=== PATIENT | male | born 1980 | race Caucasian/White ===

== ENCOUNTER → 2022-03-27 | Outpatient (CLI) | payer OTHER, SELFPAY | END | disposition home or self-care (01) | LOC: PSN 09:49 | PROVIDERS: Referring Provider Internal Medicine Cardiovascular Disease; Visit Provider Internal Medicine Cardiovascular Disease | DX: I49.3 Ventricular premature depolarization (principal) | CPT/HCPCS: 93225; 93226 ==

== ENCOUNTER → 2022-10-08 | Outpatient (CLI) | payer OTHER, SELFPAY ==
[2022-10-08 12:55] LABS: ALB/GLOB Ratio 1.3 RATIO (0.9-2.4); AST(SGOT) 27 U/L (15-37); Alanine Aminotransfer ALT/SGPT 36 U/L (16-61); Albumin, Serum 4.1 g/dL (3.2-5.0); Alkaline Phosphatase 71 U/L (45-117); Anion Gap 4 (5-15); BUN 15 mg/dL (7-18); BUN/Creat Ratio 16.8 RATIO (10-20); Calcium,Total 8.8 mg/dL (8.5-10.1); Chloride 106 mmol/L (98-107); Cholesterol 157 mg/dL (200); EST Glomerular Filtration Rate 98 mL/min (>60); Est Glom Filt Rate - Afr Amer 119 mL/min (>60); Globulin 3.1 g/dL (2.2-4.2); Glucose 105 mg/dL (74-106); High Density Lipoprotein 63 mg/dL; Protein, Total 7.2 g/dL (6.4-8.2); Sodium Level 138 mmol/L (136-145); Triglycerides 78 mg/dL; Very Low Density Lipoprotein 16 mg/dL (5-40)
== END | disposition home or self-care (01) ==
LOC: LAB 10:33
PROVIDERS: Referring Provider Physician Assistant Medical; Visit Provider Physician Assistant Medical
DX: E78.5 Hyperlipidemia, unspecified (principal)
CPT/HCPCS: 36415; 80053; 80061

== ENCOUNTER → 2023-10-09 | Outpatient (CLI) | payer OTHER, SELFPAY ==
[2023-10-09 11:59] LABS: AST(SGOT) 22 U/L (15-37); Alanine Aminotransfer ALT/SGPT 36 U/L (16-61); Albumin, Serum 3.9 g/dL (3.2-5.0); Alkaline Phosphatase 60 U/L (45-117); Bilirubin, Direct 0.18 mg/dL (0.00-0.30); Cholesterol 160 mg/dL (200); Globulin 3.3 g/dL (2.2-4.2); High Density Lipoprotein 61 mg/dL; Protein, Total 7.2 g/dL (6.4-8.2); Triglycerides 68 mg/dL; Very Low Density Lipoprotein 14 mg/dL (5-40)
== END | disposition home or self-care (01) ==
LOC: LAB 10:28
PROVIDERS: Referring Provider Physician Assistant Medical; Visit Provider Physician Assistant Medical
DX: I49.3 Ventricular premature depolarization (principal); E78.5 Hyperlipidemia, unspecified
CPT/HCPCS: 36415; 80061; 80076

== ENCOUNTER → 2025-04-06 | Outpatient (CLI) | payer OTHER, SELFPAY ==
--- NOTE | 2025-04-06 07:43 | ECHOD_ITS ---
Reason For Study Reason For Study: Arrhythmia Procedure This was a 2D Doppler, Color Flow transthoracic echocardiogram. Myocardial strain analysis was performed in this exam to aid in the assessment of cardiac function. Exam performed in department. Left Ventricle Normal LV size. The global longitudinal strain = -18.2 % (normal). The left ventricular ejection fraction is 60 %. Normal diastology for age. No regional wall motion abnormalities noted. Right Ventricle Normal RV size. Normal systolic function. Atria Normal left atrium. Normal right atrium. Tricuspid Valve Normal tricuspid valve. Mild (1+) tricuspid valve insufficiency. Pulmonary artery systolic pressure is 28 mmHg. Aortic Valve Normal aortic valve. Trisinus/trileaflet aortic valve. Pulmonic Valve Normal pulmonic valve. Great Vessels Normal aortic root. The pulmonary artery is normal size. Inferior vena cava collapse with respiration. Pericardium/Pleural No pericardial effusion. MMode/2D Measurements & Calculations LVIDd: 4.8 cm IVSd: 0.85 cm Ao root diam: 3.2 cm LVIDs: 3.0 cm LVPWd: 0.78 cm RVDd: 4.0 cm FS: 36.8 % LAV(MOD-bp): 37.7 ml LVAd ap4: 35.0 cm2 SV(MOD-sp4): 68.2 ml LAV(MOD-bp) Indexed: 18.5 ml/m2 LVLd ap4: 8.7 cm SI(MOD-sp4): 33.4 ml/m2 LAV(MOD-sp2): 43.2 ml EDV(MOD-sp4): 116.0 ml LAV(MOD-sp4): 31.9 ml EDV(sp4-el): 119.2 ml LVAs ap4: 19.6 cm2 LVLs ap4: 7.0 cm ESV(MOD-sp4): 47.8 ml ESV(sp4-el): 46.5 ml EF(MOD-sp4): 58.8 % EF(sp4-el): 61.0 % SV(sp4-el): 72.7 ml LA dimension(2D): 3.6 cm LA A4 area: 14.2 cm2 RA A4 area: 15.9 cm2 TAPSE: 1.8 cm Time Measurements MV dec time: 0.21 sec Doppler Measurements & Calculations MV E max andrés: 85.9 cm/sec Lat Peak E' Andrés: 17.7 cm/sec Med Peak E' Andrés: 11.8 cm/sec MV A max andrés: 52.9 cm/sec E/E' lat: 4.8 E/E' med: 7.3 MV E/A: 1.6 MV V2 max: 98.0 cm/sec MV P1/2t max andrés: 99.0 cm/sec Ao V2 max: 126.8 cm/sec MV max P.8 mmHg MV P1/2t: 72.9 msec Ao max P.4 mmHg MV V2 mean: 48.5 cm/sec Ao V2 mean: 84.2 cm/sec MV mean P.1 mmHg MV dec slope: 397.8 cm/sec2 Ao mean P.3 mmHg MV V2 VTI: 28.0 cm MVA(P1/2t): 3.0 cm2 Ao V2 VTI: 28.4 cm AV (velocity ratio): 0.92 LV V1 max: 123.1 cm/sec PA V2 max: 132.0 cm/sec TR max andrés: 247.2 cm/sec LV V1 max P.1 mmHg PA V2 mean: 95.9 cm/sec TR max P.4 mmHg LV V1 mean P.2 mmHg LV V1 mean: 83.4 cm/sec LV V1 VTI: 26.0 cm ECHO/Echo Complete Interpretation Summary Normal LV size. The global longitudinal strain = -18.2 % (normal). The left ventricular ejection fraction is 60 %. Structurally normal valves. Ordering Physician: Candy Schilling Referring Physician: Candy Schilling Performed By: Marino De La Rosa RCS
--- OUTSIDE RECORDS SUMMARY | 2025-04-06 07:51 | XMS RPT_ITS | CCD ---
Author Organization [facility] Care Team Providers Care Card Tender Name Role Phone Free, Text Entry Unavailable Unavailable Cathybart Seth Fabian Unavailable Unavailable Primary Care Provider Unavailmelissa Maier MD, Terrence Unavailable Terrence Maier MD Unavailable Terrence Maier MD Unavailable Care Physician, No Primary Primary Care Provider Unavailable Care Physician, No Primary Referring Provider Un available Shakir OLIVIER, CHARLINE Maurer Attending Provider Terrence Maier MD Unavailable DUSTIN LANG Attending Unavailable Care Physician, No Primary Primary Care Unava ilable Candy Schilling Referring Unavailabl Candy Chen Attending Unavailabl e Care Physician, No Primary Primary Care Unava ilable Candy Schilling Referring UnavailCandy Monet Attending Unavailabl e Care Physician, No Primary Referring Unava ilable Care Physician, No Primary Primary Care Unava ilable Candy Schilling Attending Unavailabl e Medications Current Medications Medication Drug Class(es) Dates Sig (Normalized) Sig (Original) atorvastatin 40 mg oral tablet (11 sources) HMG-CoA Reductase Inhibitor Start: 08-10-2021 End: 10-08-2022 atorvastatin (LIPITOR) 40 mg tablet Indications: Hyperlipidemia, unspecified hyperlipidemia type TAKE 1 TABLET DAILY AT BEDTIME 90 tablet 3 08/22/2022 Active Start: 08-07-2020 End: 08-07-2021 take 1 tablet by mouth once daily at bedtime atorvastatin (LIPITOR) 40 mg tablet Indications: Hyperlipidemia, unspecified hyperlipidemia type Take 1 tablet by mouth daily at bedtime. 15 tablet 0 08/07/2020 08/07/2021 Discontinued Comment on above: Take 1 tablet by jb th daily at bedtime. TAKE 1 TABLET DAILY AT BEDTIME benoxinate hydrochloride 4 mg/ml / fluorescein sodium 3 mg/ml ophthalmic solution (2 sources) Diagnostic Dye Start: 04-28-2024 End: 04-28-2024 fluorescein-benoxi gissel 0.3-0.4 % 1 Drop (FLURESS) Start: 04-28-2024 End: 04-28-2024 1 Drop, BOTH EYES, DIRECT ED, Starting on Fri04/28/24 at 1030, Until Fri04/28/24 at 222, Administer for applanation tonometry. In the event of a Fluress shortage, administer Carney-Fluor 1 drop into both eyes as directed for applanation tonometry, [facility] MED ORDERS cephalexin 500 mg oral capsule (1 source) Cephalosporin Antibacterial Start: 12-28-2020 End: 12-30-2020 take 1 capsule by mouth three times daily Keflex 500 mg oral capsule ; 1 cap(s) orally 3 times a day Quantity: 9 Refills: 0 Ordered: 28-Dec-2020 Seth Avery Start: 28-Dec-2020 End: 30-Dec-2020 Generic Substitution Allowed Comments: Finish all this medication unless otherwise directed by prescriber. Comment on above: Finish all this medi cation unless otherwise directed by prescriber. flecainide acetate 50 mg oral tablet (6 sources) Antiarrhythmic Start: 03-24-2024 flecainide (TAMBOCOR) 50 mg tablet 03/24/2024 Active Start: 02-22-2022 End: 10-08-2022 take 50 mg by mouth every twelve hours Flecainide Active 50 MG PO Q12H 180 October 08, 2022 10:20am phenylephrine hydrochloride 25 mg/ml ophthalmic solution (2 sources) alpha-1 Adrenergic Agonist Start: 04-28-2024 End: 04-28-2024 PHENYLephrine 2.5 % 1 Drop (AK-DILATE, AIXA-SYNEPHRINE) Start: 04-28-2024 End: 04-28-2024 1 Drop, BOTH EYES, DIRECT ED, Starting on Fri04/28/24 at 1030, Until Fri04/28/24 at 2229, Administer for dilation PROTECT FROM LIGHT, [facility] CLINIC MED ORDERS microencapsulated potassium chloride 20 meq extended release oral tablet (3 sources) Start: 12-23-2021 take 1 tablet by mouth once daily potassium chloride ER (K-DUR, KLOR-CON) 20 mEq tablet Take 1 tablet by mouth once daily. 7 tablet 12/23/2021 Active Comment on above: Take 1 tablet by jb th once daily. proparacaine hydrochloride 5 mg/ml ophthalmic solution (1 source) Local Anesthetic Start: 04-28-2024 End: 04-28-2024 proparacaine 0.5 % 1 Drop (ALCAINE) tropicamide 10 mg/ml ophthalmic solution (2 sources) Anticholinergic Start: 04-28-2024 End: 04-28-2024 tropicamide 1 % 1 Drop (MYDRIACYL) Start: 04-28-2024 End: 04-28-2024 1 Drop, BOTH EYES, DIRECT ED, Starting on Fri04/28/24 at 1030, Until Fri04/28/24 at 2229, Administer for dilation, [facility] hr verapamil hydrochloride 120 mg extended release oral capsule (5 sources) Calcium Channel Yoanna Start: 02-04-2022 End: 10-08-2022 take 1 capsule by mouth once daily at bedtime verapamil ER (VERELAN) 120 mg 24 hr capsule Indications: Palpitations Take 1 capsule by mouth daily at bedtime. 90 capsule 3 02/04/2022 Active Comment on above: Take 1 capsule by mo [facility] daily at bedtime. Completed/Discontinued Medications Medication Drug Class(es) Dates Sig (Normalized) Sig (Original) 24 hr metoprolol succinate 25 mg extended release oral tablet (7 sources) beta-Adrenergic Yoanna Start: 02-22-2022 End: 02-22-2022 take 25 mg by mouth twice daily Metoprolol Succinate Discontinued 25 MG PO TWICE A DAY February 22, 2022 12:00am February 22, 2022 3:37pm Start: 09-24-2021 take 1 tablet by jb th twice daily metoprolol succinate ER (TOPROL XL) 25 mg 24 hr tablet Indications: Palpitations Take 1 tablet by mouth twice daily. 180 tablet 3 09/24/2021 Active Start: 10-27-2020 End: 09-24-2021 take 1 tablet by mouth twice daily metoprolol tartrate, short acting, (LOPRESSOR) 25 mg tablet Indications: Palpitations Take 1 tablet by mouth twice daily. 180 tablet 3 10/27/2020 09/24/2021 Discontinued (Clinical Decision) Comment on above: Take 1 tablet by jb twice daily. Problems Active Problems Problem Classification Problem Date Documented Date Episodic/Chronic Blindness and vision defects (2 sources) Presbyopia; Translations: [Presbyopia] Onset: 04-28-2024 04-28-2024 Episodic Cardiac dysrhythmias (4 sources) Multiple premature ventricular complexes; Translations: [Ventricular premature depolarization] Onset: 06-02-2024 02-22-2022 Chronic Disorders of lipid metabolism (4 sources) Hyperlipidemia; Translations: [Hyperlipidemia, unspecified] Chronic Other aftercare (1 source) Encounter for therapeutic drug level monitoring; Translations: [Encounter for therapeutic drug monitoring] 10-08-2022 Episodic Other screening for suspected conditions (not mental disorders or infectious disease) (2 sources) Abnormal electrocardiogram [ECG] [EKG]; Translations: [Abnormal electrocardiogram [ECG] [EKG]] Onset: 06-02-2024 Episodic Unclassified (2 sources) LEFT FINGERS DEGLOVING INJURY 12-28-2020 Comment on above: LEFT FINGERS DEGLOVI NG INJURY Past or Other Problems Problem Classification Problem Date Documented Da te Episodic/Chronic Anal and rectal conditions (6 sources) Anorectal disorder; Translations: [Other specified diseases of anus and rectum] Onset: 01-27-2006 01-27-2006 Episodic Cardiac dysrhythmias (12 sources) Palpitations; Translations: [Palpitations] Onset: 08-07-2021 08-07-2021 Episodic Results Test Name Value Interpretation Reference Range Facility 12 Lead EKG performed by [facility] [place] 06-02-2024 12 Lead EKG performed by [facility] [address] [place] [address] 12 Lead EKG performed by [facility] 06/02/24 0803 MR#: [id number] Acct: [id number] Name: ROBETRO MAIN Rep #: [id number] : 1980 43 From: Candy Fitzgerald Attending Dr: CHARLINE Baker Status: DEP AMB Ordering Dr: Candy Schilling Date: 05/19 10/10 Location: [facility] Sex: M C Admitted: BMS/12 Lead EKG performed by [facility] ECG Report Interpretation --Sinus Rhythm WITHIN NORMAL LIMITSElectronically signed on 06/07/2024 at 08:29 by Alejandro Turnerwood Software Version [id number] 06/07/24 0833 Date Candy OLIVIER CC: No Primary Care Physician Date Dictated: 06/02/24802 Date Transcribed: 06/02/24802 Ship Wirer: MISTY Signed [facility] Cardiology Visit Reporton Cardiology Visit Report [facility] [place] [address] [facility] [address] [place] [address] OFFICE VISIT Date of Service: 06/02/24 MR#: [id number] Acct: [id number] Name: ROBERTO MAIN Rep #: [id number] : 1980 Provider: CHARLINE Ruby Age/Sex: 43/M Location: [facility] Status: Signed HPI HPI History of Present Illness Details: Roberto Main is a 43-year-old man with a history of premature ventricular complexes which date back to 2019. He has had at least 2 Zio patch is performed which have demonstrated premature ventricular complexes ranging from 8.5% to approximately 6%. He says that he had been on a beta-yoanna before and he did not have much benefit from this. In addition he was noted to be rather significantly fatigued. He had an echocardiogram performed in 2019 demonstrating an ejection fraction of 59% ???5% and then had a follow-up Holter monitor in 2019 demonstrating a PVC burden rate of 6%. He does attest to the fact that he has been under some stress. Blood work has not demonstrated any significant electrolyte abnormalities. His electrocardiograms have not demonstrated any evidence of outflow tract morphology per se. He tells me that his palpitations have improved significantly on the current medications. From a cardiac standpoint, patient is doing well. He does not have any chest discomfort/heaviness/tig htness. His exercise tolerance is stable for his age. He does not have any worsening symptoms of shortness of breath. He denies any PND. He does not have any orthopnea. He does not have any symptoms of congestive heart failure. He does not have any palpitations that he is aware of. He does not have any lightheadedness or dizziness. He does not have any near-syncope or syncope. He does not have any lower extremity edema. He does not have any symptoms of claudication. Intake Vital Signs 06/03/23 09:49 10/09/23 09:48 06/02/24 09:57 Height 5 ft 11 in 5 ft 11 in 5 ft 11 in Weight: 203 lb 197 lb 200 lb BMI 28.3 27.4 27.8 BP 124/73 H 120/79 113/75 Blood Pressure Location Lt brachial Lt brachial Lt brachial Position Sitting Sitting Sitting Respiration 14 18 18 Pulse 66 62 64 Pulse Source Monitor Monitor Monitor Pulse Oximetry (%) 99 99 Intake Visit Reasons: 1 Y FU Hydrogeology Professor Required: No Is patient in pain?: No Allergies No Known Allergies Allergy (Unverified 06/02/24 09:58) Medications ???Medication ???Instructions ???Recorded ???Confirmed ???Type atorvastatin 40 mg tablet 40 mg PO DAILY #90 tabs 06/02/24 06/02/24 Rx flecainide 50 mg tablet 50 mg PO Q12H #180 tabs 06/02/24 06/02/24 Rx verapamil 120 mg 24 hr 120 mg PO DAILY #90 caps 06/02/24 06/02/24 Rx capsule,extended release [facility] Medical History Hyperlipidemia Multiple premature ventricular complexes Surgical History History of vasectomy Social History Smokeless tobacco user: chewing tobacco how long ago did patient quit smoking: stopped chewing tobacco 2018 alcohol intake: current alcohol intake frequency: a few times a month ROS Const Const: Negative for fatigue, weakness, headache(s), daytime sleepiness or difficulty sleeping Eyes Eyes: Negative for change in vision ENT ENT: Negative for headache(s), dizziness or Nosebleed/epistaxis Cardio Chest Pain: No Palpitations: No Edema: None Resp Respiratory: Negative for SOB with activity, SOB at rest, SOB orthopnea SOB lying down or Cough GI GI: Negative nausea, vomiting or heartburn Neuro Neuro: Negative for dizziness, lightheadedness, near syncope, headache(s) or weakness Endo Endo: Negative for fatigue Cardiology Exam Const Appearance: cooperative, healthy appearing, comfortable, no acute distress and well developed Orientation: alert, awake and oriented x3 Head Head: normal to inspection Ears: hearing grossly normal bilaterally Nose: external nose normal Face and Sinus: face symmetric Mouth: oral mucosae normal, lip normal and moist mucous membranes Eyes General: appearance normal, both eyes and all related structures Eyelids: eyelids normal Conjunctivae: conjunctivae normal Pupils: PERRL EOM: EOM intact bilaterally Neck Neck: normal visual inspection and trachea midline; Negative no JVD Carotids: Negative bruit Chest Chest inspection: normal inspection of the chest Auscultation: Bilateral: Clear to Auscultation Cardio Palpation: normal PMI Rate: regular rate Rhythm: regular rhythm Heart sounds: S1 normal and S2 normal; Negative rub, gallop or murmur GI GI: soft, no hepatosplenomegaly and bowel sounds present Neuro General: patient alert, pa (more content not included)... [facility] Basophil percentageOrdered B y: Candy Schilling on 10-08-2022 Bilirubin [Mass/Vol] 0.80 mg/dL 0.20-1.00 [facility] Comment on above: For patients on eltr ombopag therapy, use of Dimension Aurora TBIL is not recommended. Chloride [Moles/Vol] 106 mmol/L 98-107 [facility] Cholesterol [Mass/Vol] 157 mg/dL <200 [facility] Comment on above: <200 mg/dL Desirable 200-240 mg/dL Borderline >240 mg/dL High Risk Glucose [Mass/Vol] 105 mg/dL 74-106 [facility] Comment on above: Fasting Glucose resu lt from 100 to 125 mg/dL suggests IMPAIRED HOMEOSTASIS per A.D.A. criteria. Potassium [Moles/Vol] 4.0 mmol/L 3.5-5.1 [facility] Protein [Mass/Vol] 7.2 g/dL 6.4-8.2 [facility] Sodium [Moles/Vol] 138 mmol/L 136-145 [facility] Triglyceride [Mass/Vol] 78 mg/dL <199 [facility] Comment on above: The drugs N-Acetylcy steine and Metamizole may falsely depress this assay.Serum Triglycerides Reference Interval Normal <150 mg/dL Borderline high 150 - 199 mg/dL High 200 - 499 mg/dL Very High > or = 500 mg/dL Laboratory - Chemistry and C hemistry - challengeOrdered By: Candy Schilling on 10-08-2022 ALP [Catalytic activity/Vol] 71 U/L 45-117 [facility] ALT [Catalytic activity/Vol] 36 U/L 16-61 [facility] CO2 [Moles/Vol] 28.0 mmol/L 21.0-32.0 [facility] Globulin (S) [Mass/Vol] 3.1 g/dL 2.2-4.2 [facility] Urea nitrogen/Creatinine [Mass ratio] 16.8 mg/mg 10-20 [facility] No Panel InformationOrdered By: Candy Schilling on 10-08-2022 Estimated GFR (MDRD) Amer 119 mL/min >60 [facility] Comment on above: GFR Calc Estimated GFR (MDRD) Non-Af Amer 98 mL/min >60 [facility] Comment on above: Non- GFR Calc Serum or plasma albumin alex urement (mass/volume)Ordered By: Candy Schilling on 10-08-2022 Albumin [Mass/Vol] 4.1 g/dL 3.2-5.0 [facility] Serum or plasma albumin/glob ulin mass ratioOrdered By: Candy Schilling on 10-08-2022 Albumin/Globulin [Mass ratio] 1.3 {ratio} 0.9-2.4 [facility] Serum or plasma calcium alex urement (mass/volume)Ordered By: Candy Schilling on 10-08-2022 Calcium [Mass/Vol] 8.8 mg/dL 8.5-10.1 [facility] Serum or plasma cholesterol in HDL measurement (mass/volume)Ordered By: Candy Schilling on 10-08-2022 Cholesterol in HDL [Mass/Vol] 63 mg/dL >40 [facility] Comment on above: The drugs N-Acetylcy steine and Metamizole may falsely depress this assay. Reference Range HDL <40 mg/dL Low HDL Cholesterol HDL >or= 60 mg/dL High HDL Cholesterol Serum or plasma cholesterol in VLDL measurement (mass/volume)Ordered By: Candy Schilling on 10-08-2022 Cholesterol in VLDL [Mass/Vol] 16 mg/dL 5-40 [facility] Serum or plasma creatinine m easurement (mass/volume)Ordered By: Candy Schilling on 10-08-2022 Creatinine [Mass/Vol] 0.90 mg/dL 0.70-1.30 [facility] Comment on above: The validity of the calculated GFR & GFRAA in patients over 70 years has not been determined. Clinical correlation is essential. Serum or plasma low density lipoprotein (LDL) cholesterol measurement (mass/volume)Ordered By: Candy Schilling on 10-08-2022 Cholesterol in LDL [Mass/Vol] 78 mg/dL 0-130 [facility] Serum or plasma urea nitroge n measurement (mass/volume)Ordered By: Candy Schilling on 10-08-2022 Urea nitrogen [Mass/Vol] 15 mg/dL 7-18 [facility] Thin prep Papanicolaou smear with manual screeningOrdered By: Candy Schilling on 10-08-2022 Thin prep Papanicolaou smear with manual screening 27 U/L 15-37 [facility] Thin prep Papanicolaou smear with manual screening 4 5-15 [facility] Basic metabolic 2000 panelon 01-07-2022 Anion gap [Moles/Vol] 8 mmol/L Low 9-18 [facility] Comment on above: Order Comment: Speci men Type: BLOOD SPECIMEN Ordering Facility: [facility] Address: [address] [place] [address] Performed By: #### 2 4321-2 #### [facility] CLIA [id number] [address] [place] [address] [place] Calcium [Mass/Vol] 9.4 mg/dL Normal 8.5-10.2 [facility] Comment on above: Order Comment: Speci men Type: BLOOD SPECIMEN Ordering Facility: [facility] Address: [address] [place] [address] Performed By: #### 2 4321-2 #### [facility] CLIA [id number] [address] Chloride [Moles/Vol] 104 mmol/L Normal 97-105 [facility] Comment on above: Order Comment: Speci men Type: BLOOD SPECIMEN Ordering Facility: [facility] Address: [address] [place] [address] Performed By: #### 2 4321-2 #### [facility] CLIA [id number] [address] [facility] CO2 [Moles/Vol] 30 mmol/L Normal 22-30 [facility] Comment on above: Order Comment: Speci men Type: BLOOD SPECIMEN Ordering Facility: [facility] Address: [address] [place] [address] Performed By: #### 2 4321-2 #### [facility] CLIA [id number] [address] Creatinine [Mass/Vol] 1.08 mg/dL Normal 0.73-1.22 [facility] Comment on above: Order Comment: Speci men Type: BLOOD SPECIMEN Ordering Facility: [facility] Address: [address] [place] [address] Performed By: #### 2 4321-2 #### [facility] CLIA [id number] [address] ESTIMATED GLOMERULAR FILTRATION RATE 88 mL/min/1.73m??? Normal >=60 [facility] Comment on above: Order Comment: Speci men Type: BLOOD SPECIMEN Ordering Facility: [facility] Address: [address] [place] [address] Result Comment: Rizwana mated Glomerular Filtration Rate (eGFR) is calculated using the 2020 CKD-EPI creatinine equation. This equation utilizes serum creatinine, sex, and age as parameters. The creatinine assay has traceable calibration to isotope dilution-mass spectrometry. Refer to KDIGO guidelines for clinical interpretation. In patients with unstable renal function, e.g. those with acute kidney injury, the eGFR may not accurately reflect actual GFR. Performed By: #### 2 4321-2 #### [facility] CLIA [id number] [address] [place] [address] [place] Glucose [Mass/Vol] 101 mg/dL High 74-99 [facility] Comment on above: Order Comment: Edward montoya Type: BLOOD SPECIMEN Ordering Facility: [facility] Address: [address] [place] [address] Result Comment: The [place] Diabetes Association (ADA) provides guidance for cutoff values for fasting glucose and random glucose. The ADA defines fasting as no caloric intake for at least 8 hours. Fasting plasma glucose results between 100 to 125 mg/dL indicate increased risk for diabetes (prediabetes). Fasting plasma glucose results greater than or equal to 126 mg/dL meet the criteria for diagnosis of diabetes. In the absence of unequivocal hyperglycemia, results should be confirmed by repeat testing. In a patient with classic symptoms of hyperglycemia or hyperglycemic crisis, random plasma glucose results greater than or equal to 200 mg/dL meet the criteria for diagnosis of diabetes. Reference: Standards of Medical Care in Diabetes 2016, [place] Diabetes Association. Diabetes Care. 2016.39(Suppl 1). Performed By: #### 2 4321-2 #### [facility] CLIA [id number] [address] [place] [address] [place] Potassium [Moles/Vol] 4.8 mmol/L Normal 3.7-5.1 [facility] Comment on above: Order Comment: Edawrd montoya Type: BLOOD SPECIMEN Ordering Facility: [facility] Address: [address] [place] [address] Performed By: #### 2 4321-2 #### [facility] CLIA [id number] [address] [place] [address] [place] Sodium [Moles/Vol] 142 mmol/L Normal 136-144 [facility] Comment on above: Order Comment: Edward montoya Type: BLOOD SPECIMEN Ordering Facility: [facility] Address: [address] [place] [address] Performed By: #### 2 4321-2 #### [facility] CLIA [id number] [address] [place] [address] [place] Urea nitrogen [Mass/Vol] 19 mg/dL Normal 9-24 [facility] Comment on above: Order Comment: Speci men Type: BLOOD SPECIMEN Ordering Facility: [facility] Address: [address] [place] [address] Performed By: #### 2 4321-2 #### [facility] CLIA [id number] [address] [place] [address] [place] Provider Note - ED v2on 12-17 Provider Note - ED v2 Provider Note - ED v2: Chart Review: HISTORY OF PRESENTING ILLNESS ROBERTO is a 40 year old Male and was seen by me at 28-Dec-2020 16:29. Triage Information: Most recent Vital Sign Value Date PAST MEDICAL HISTORY ATTESTATION: I have reviewed and confirmed nurse's/medic's notes for patient's medications, allergies, and medical, surgical, family and social history ALLERGIES/INTOLERANCES: No Known Allergies HEALTH HISTORY: No documented data. OUTPATIENT MEDICATIONS: Home Medications Review Status for Reconciliation: Complete Med Status: Patient Currently Takes Medications Drug Name: Lipitor 40 mg oral tablet Instructions: 1 tab(s) orally once a day Drug Name: metoprolol tartrate 25 mg oral tablet Instructions: 1 tab(s) orally 2 times a day Drug Name: Keflex 500 mg oral capsule Instructions: 1 cap(s) orally 3 times a day SIGNIFICANT EVENTS: Immunizations Description:Td - Tetanus-Diptheria RESULTS/VITAL SIGNS VITAL SIGNS: T PRBP SpO2O2(LPM) %FiO2 Method 28-Dec-2020 16:32:[id number] 98 MEDICAL DECISION MAKING/ED COURSE MDM/ED COURSE: This note was generated with voice recognition software and may contain errors including spelling, grammar, syntax, and misrecognization of what was dictated Chief Complaint Degloved fingers of left hand History of Present Illness Patient presents in apparent distress with complaints of attempting to move a boat trailer by the time as it was rolling backwards. This caused skin to be pulled back and or removed on the lesser digits of the left hand. Patient points to the palmar aspect of the left hand as the source of his injury. He states his last tetanus booster was approximately 4 or 5 years ago. Patient states he has full sensation and movement to all the digits of the left hand. Prior to arrival the wound was cleansed and bandaged. Review of Systems 10 systems reviewed negative with exception of history of present illness listed above Physical Examination General: Alert and oriented, No acute distress. Eye: Pupils are equal, round HENT: Normocephalic Respiratory: Respirations are non-labored, Symmetrical chest wall expansion. Cardiovascular: Capillary refill is less than 3 seconds to the distal digits of the left hand Musculoskeletal: Normal range of motion, normal strength, no tenderness, no swelling. Integumentary: [place], warm, dry, with a 2 cm V-shaped partial avulsion noted at the PIP joint of the 4th digit of the left hand on the palmar aspect with a partial-thickness avulsion x2 to the 3rd digit on the palmar aspect and a small 1 cm V-shaped partial avulsion to the PIP joint of the 5th digit on the ulnar aspect of the left hand Neurologic: Alert, Oriented, Normal sensory, Normal motor function. Cognition and Speech: Oriented, Speech clear and coherent. Psychiatric: Cooperative, Appropriate mood & affect. Impression and Plan Course: Unchanged Plan patient's left hand was soaked in chlorhexidine prior to cleaning the digits with Betasept. 1% lidocaine was used for local anesthesia and sterile saline was used to irrigate the wounds. Visualization reveals no retained foreign bodies and the wounds with the exception of a small portion of the partial avulsion of the 4th digit approximate well. Quantity 4 5-0 sutures were used in simple interrupted fashion to approximate the V-shaped laceration to the 4th digit of the left hand. Distal to this is another linear partial avulsion that was later prepped and covered with Steri-Strips and measured approximately 0.5 cm in length. Quantity 2 5-0 sutures were used in simple interrupted fashion to approximate the partial avulsion of the 3rd digit on the palmar aspect of the left hand. Patient tolerated this well. Home-going instructions were reviewed with patient. A splint was applied to the 4th digit after Neosporin and bandages that are nonadherent were applied. Prophylactic 3-day supply of oral antibiotics will be sent to patient's local pharmacy. Patient agrees with plan of care, questions were encouraged and answered. It should be noted that patient was advised to seek orthopedic evaluation with any concerns. Patient's tetanus was updated in the office Patient Instructions: Laceration care CLINICAL IMPRESSION Diagnosis/Annotation: ED Dx Name:Laceration of hand, left Code:S61.412A Disposition: discharged Type: home ATTESTATION CRITICAL CARE TIME Is this a critically ill patient: no Electronic Signatures: Seth Avery (PACK MASTER-HOSPITAL PHARMACIST) (Signed 28-Dec-2020 17:32) Authored: HPI, PMH, PE, Results/Vital Signs, MDM/ED Course, Clinical Impression, Attestation, Chart Review, Scores Last Updated: 28-Dec-2020 17:32 by Seth Avery (PACK MASTER-HOSPITAL PHARMACIST) [facility] Vital Signs Date Time Vital Sign Value Performing Clinician Toribio vega 10-08-2022 07:46-0400 Body height 180.34 cm No Primary Care Physician [facility] 10-08-2022 07:46-0400 Body mass index (BMI) [Ratio] 27.8 kg/m2 No Primary Care Physician [facility] 10-08-2022 07:46-0400 Body weight 90.71 kg No Primary Care Physician [facility] 10-08-2022 07:46-0400 Diastolic blood pressure 74 mm[Hg] No Primary Care Physician [facility] 10-08-2022 07:46-0400 Heart rate 64 /min No Primary Care Physician [facility] 10-08-2022 07:46-0400 Respiratory rate 16 /min No Primary Care Physician [facility] 10-08-2022 07:46-0400 Systolic blood pressure 128 mm[Hg] No Primary Care Physician [facility] 09-24-2021 09:03-0400 Body weight 94.35 kg Terrence Maier MD Work Phone: [facility] 09-24-2021 09:03-0400 Diastolic blood pressure 74 mm[Hg] Terrence Maier MD Work Phone: [facility] 09-24-2021 09:03-0400 Heart rate 57 /min Terrence Maier MD Work Phone: [facility] 09-24-2021 09:03-0400 Respiratory rate 12 /min Terrence Maier MD Work Phone: [facility] 09-24-2021 09:03-0400 SaO2% (BldA) [Mass fraction] 98 % Terrence Maier MD Work Phone: [facility] 09-24-2021 09:03-0400 Systolic blood pressure 124 mm[Hg] Terrence Maier MD Work Phone: [facility] 12-28-2020 18:32-0400 Body height 180.3 cm Text Entry [facility] 12-28-2020 18:32-0400 Body temperature 98.6 [degF] Text Entry [facility] 12-28-2020 18:32-0400 Diastolic blood pressure 81 mm[Hg] Text Entry [facility] 12-28-2020 18:32-0400 Heart rate 67 /min Text Entry [facility] 12-28-2020 18:32-0400 Respiratory rate 16 /min Text Entry [facility] 12-28-2020 18:32-0400 SaO2% (BldA) [Mass fraction] 98 % Text Entry [facility] 12-28-2020 18:32-0400 Systolic blood pressure 120 mm[Hg] Text Entry [facility] Encounters Encounter Date Encounter Type Care Provider Facility Start: 04-06-2025 ambulatory No Primary Car e Physician Facility:[facility] Start: 06-15-2024 ambulatory No Primary Car e Physician Facility:[facility] Start: 06-02-2024 End: 06-02-2024 ambulatory No Primary Care Physician Facility[facility] Start: 04-28-2024 End: 04-28-2024 ambulatory DUSTIN LANG Facility:[facility] Start: 04-28-2024 End: 04-28-2024 Patient encounter procedure Dustin Lang OD Work Phone: Ophthalmology Comment on above: Presbyopia (Primary Dx); Hx of LASIK Start: 10-08-2022 End: 10-08-2022 ambulatory No Primary Care Physician [facility] Work Phone: Start: 10-08-2022 End: 10-08-2022 Patient encounter procedure No Primary Care Physician [facility] Work Phone: Start: 08-22-2022 Refill Terrence Maier MD Work Phone: Cardiology Comment on above: Refill Request (Ator vastatin) Start: 01-08-2022 End: 01-08-2022 ambulatory Arrhythm[facility] Work Phone: Cardiology Comment on above: Event (Zio patch) Start: 10-30-2021 End: 10-30-2021 ambulatory Terrence Maier MD Work Phone: Cardiology Comment on above: Palpitations (Primar y Dx) Start: 10-30-2021 End: 10-30-2021 Telemedicine consultation with patient Terrence Maier MD Work Phone: [facility] Start: 09-24-2021 End: 09-24-2021 Patient encounter procedure Terrence Maier MD Work Phone: Cardiology Comment on above: Palpitations Start: 08-03-2021 Refill Delaney Gomez PACK MASTER.HOSPITAL PHARMACIST Work Phone: Cardiology Comment on above: Refill Request Start: 12-28-2020 End: 12-28-2020 Emergency department patient visit Seth Avery [facility] 01 Procedures Date Procedure Procedure Detail Performing Clinician Start: 04-28-2024 History of laser ass isted in situ keratomileusis Hx of LASIK Dustin Lang OD Work Phone: Start: 09-14-2020 Lipid 1996 panel - S radha or Plasma Dustin Lang OD Work Phone: Plan of Treatment Date Care Activity Detail Author Start: 12-28-2030 Urine microalbumin profile DTaP,Tdap,Td Vaccine (3 - Td or Tdap) [facility] Start: 03-15-2027 Urine microalbumin profile DTAP,TDAP,TD (2 - Td or Tdap) [facility] Start: 09-14-2025 Lipid panel Lipid Screening [facility] Start: 09-14-2025 LIPID SCREEN LIPID SCREEN [facility] Start: 04-29-2025 End: 04-29-2025 Patient encounter procedure 04/29/2025 10:15 AM EST Office Visit [facility] [address] [address] Dustin Lang, OD [address] [place] [address] Return in about 1 year (around 04/28/2025) for Yearly Eye Examination. Ophthalmology Comment on above: Return in about 1 ye ar (around 04/28/2025) for Yearly Eye Examination. Start: 01-18-2024 Covid-19 Vaccine ( season) Covid-19 Vaccine ( season) [facility] Start: 01-18-2024 Influenza vaccination Influenza Vacc ine (#1) [facility] Start: 01-17-2023 Influenza vaccination INFLUENZ A (Season Ended) [facility] Start: 10-08-2022 Evaluation of diagnostic study results [facility] Start: 05-19-2022 DEPRESSION ASSESSMENT DEPRESSION ASS ESSMENT [facility] Start: 01-17-2022 Influenza vaccination [facility] Start: 05-20-2021 COVID-19 VACCINE (4 - Booster for Moderna series) COVID-19 VACCINE (4 - Booster for Moderna series) [facility] Start: 01-17-2021 Influenza vaccination INFLUENZA (#1) [facility] Start: 1997 Anxiety Screening Anxiety Screening [facility] Start: 1997 Depression Screening Depression Scre ening [facility] Start: 1991 Adult depression screening assessment DEPRESSION SCREENING [facility] Immunizations Immunization Date Immunization Notes Care Provider Fa cility 12-28-2020 tetanus and diphther ia toxoids, adsorbed, preservative free, for adult use (2 Lf of tetanus toxoid and 2 Lf of diphtheria toxoid) Text Entry [facility] 03-09-2019 influenza virus vaccine, unspecified formulation Dustin Lang OD Work Phone: [facility] 03-15-2017 tetanus toxoid, redu daisy diphtheria toxoid, and acellular pertussis vaccine, adsorbed Delaney Gomez PACK MASTER.HOSPITAL PHARMACIST Work Phone: [facility] Payers Date Payer Category Payer Self-pay 2022 Unknown [id number] 2018 Unknown 2018 Unknown 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 MMO [employer] [id number] 2018-Present [phone] [address] [place] [address] PPO [id number] Unknown [id number] Unknown [id number] Unknown [id number] Social History Date Type Detail Facility [facility] Tobacco smoking consumption unknown [facility] Start: 12-23-2021 Tobacco smoking status NHIS Never smoked tobacco [facility] End: 10-13-2018 History of tobacco use Chews Tobacco [facility] Start: 11-06-2020 End: 04-28-2024 Alcohol intake Current non-drinker of alcohol (finding) [facility] Start: 1980 Sex Assigned At Male [facility] Start: 09-14-2021 End: 01-07-2022 Exposure to SARS-CoV-2 (event) Not sure [facility] Start: 12-23-2021 Tobacco use and exposure Former smokeless tobacco user [facility] Start: 01-08-2022 End: 04-28-2024 History of Social function [facility] Start: 01-08-2022 End: 04-28-2024 Tobacco use panel [facility] PHQ2 Score 0 [facility] Start: 10-23-2020 Gender identity Identifies as male gender (finding) [facility] Clinical Notes 08-07-2021 to 04-28-2024 Dustin Lang OD - 04/28/2024 10:30 AM ESTPatient InstructionsTelephone Encounter - Aline Crespo - 08/22/2022 8:47 AM EDTOandreaben Chappell Elsa - 01/08/2022 10:55 AM EDT Note Date & Type Note Facility 04-28-2024 Note HNO ID: [id number] Author: DUSTIN LANG OD Service: ? Author Type: NURSE AUDITOR Type: Progress Notes Filed: 04/28/2024 10:32 Note Text: Assessment and Plan: 1. Presbyopia -Glasses Rx given today. -OK to use OTC Readers +1.00 or +1.25 PRN. 2. Hx of LASIK -Bilateral / ~2007. -Excellent outcome. -Stable / Observe. Dustin Lang OD I have reviewed, confirmed, and edited as necessary the relevant ophthalmic history, review of systems, allergies, patient history, and ophthalmological examination findings as obtained by the ophthalmic technical staff. I have seen and examined Roberto Cooper Maurice. I have discussed the examination findings, diagnosis, and treatment options with Roberto Allison Main and/or his family. I have also reviewed and agree with the assessment and plan as stated above and agree with all its relevant components. I gave the patient the opportunity to ask questions about the examination findings, diagnosis, and treatment options. [facility] 04-28-2024 History of Presen t illness Narrative Assessment and Plan: 1. Presbyopia -Glasses Rx given today. -OK to use OTC Readers +1.00 or +1.25 PRN. 2. Hx of LASIK -Bilateral / ~2007. -Excellent outcome. -Stable / Observe. Dustin Lang, GEORGETTE I have reviewed, confirmed, and edited as necessary the relevant ophthalmic history, review of systems, allergies, patient history, and ophthalmological examination findings as obtained by the ophthalmic technical staff. I have seen and examined Roberto Main. I have discussed the examination findings, diagnosis, and treatment options with Roberto Allison Main and/or his family. I have also reviewed and agree with the assessment and plan as stated above and agree with all its relevant components. I gave the patient the opportunity to ask questions about the examination findings, diagnosis, and treatment options. documented in this encounter [facility] 04-28-2024 Instructions Dustin Lang, OD - 04/28/2024 10:26 AM EST OTC Readers +1.00 or +1.25 as needed. Please call the office with decreased vision or increased eye pain. documented in this encounter [facility] 08-22-2022 Miscellaneous Notes Pharmacy electronic RX request to request a refill on the medication(s) below: Requested Prescriptions Pending Prescriptions Disp Refills atorvastatin (LIPITOR) 40 mg tablet [Pharmacy Med Name: ATORVASTATIN TABS 40MG] 90 tablet 3 Sig: TAKE 1 TABLET DAILY AT BEDTIME PHARMACY NAME [facility] / PHONE NUMBER: [phone] Mail Order RX Physician's Name: Terrence Maier M.D. Last seen in office: 02/04/2022 If last appointment greater than one year or no follow up scheduled, sent to schedulers Dominique Crespo 08/22/2022 documented in this encounter [facility] 01-08-2022 History of Presen t illness Narrative EVENT MONITOR DISPOSABLE PATCH INSTRUCTIONS Patient Name: Roberto Main [facility] Number: [id number] Skin prepped and cleansed with alcohol Patch secured to prepped area Monitor Activated Serial #:[id number] Patient Instructed: Prescribed order timeframe Bathing guidelines Usage of event button and diary documentation Return of monitor at the end of prescribed order Call with problems [phone] or [phone] ext. [phone] Patient expresses a good understanding of instructions oRsalba [employer]builtfredyStudy[employer] documented in this encounter [facility] 10-30-2021 History of Presen t illness Narrative [facility] Department of Cardiovascular Medicine VIRTUAL VIDEO VISIT ESTABLISHED OUTPATIENT VISIT SERVICE DATE: 10/30/2021 Patient: Roberto Main SERVICE TIME: 11:07 AM : 1980 This is a virtual video visit. It required patient-provider interaction for the medical decision making as documented below. Roberto Main has consented to this video encounter. Roberto Main is a 41 year old male seen for palpitations. CHIEF COMPLAINT Palpitations HISTORY OF PRESENT ILLNESS Roberto Main is a 41 year old male who was last seen in the clinic on September 24, 2021. At that time patient was maintained on 1.5 mg of Metroprolol tartrate twice a day. Patient reported that he continued to feel the symptoms. Therefore, we switched his metoprolol to tartrate to succinate 25 mg p.o. twice daily. Since then patient reported that he has been doing quite well. There have been mild episodes of palpitations however for most part it has subsided very well. Patient is tolerating the medications very well. At this time patient does not voice any other concerns. PAST MEDICAL HISTORY Diagnosis Date NONE PAST SURGICAL HISTORY Procedure Laterality Date NONE FAMILY HISTORY Problem Relation Age of Onset Lipids Mother Lipids Father Social History Tobacco Use Smoking status: Never Smoker Smokeless tobacco: Former User Types: Chew Vaping Use Vaping Use: Never used Substance Use Topics Alcohol use: No Drug use: No ALLERGIES No Known Allergies CURRENT MEDICATIONS metoprolol succinate ER (TOPROL XL) 25 mg 24 hr tablet Take 1 tablet by mouth twice daily. atorvastatin (LIPITOR) 40 mg tablet Take 1 tablet by mouth daily at bedtime. RASSESSMENT: Roberto Main is a 41 year old male with palpitations. Patient is doing well. Therefore we will continue with our current therapeutic regimen. We will touch base with him in 6 months time. At this time patient is apprised that should his clinical situation changes, patient is to contact our office. Thank you very much for allowing us to participate in care of this pleasant gentleman PLAN (Active Outpatient Problems): Palpitations Dyslipidemia I personally spent 20 minutes in total time involved in the management and care of this patient. Terrence Maier MD October 30, 2021 11:07 AM documented in this encounter [facility] 09-24-2021 History of Presen t illness Narrative Images from the original note were not included. [facility] of Cardiovascular Medicine SECTION OF CLINICAL CARDIOLOGY OUTPATIENT VISIT DATE September 24, 2021 OUTPATIENT VISIT TYPE ESTABLISHED PRIMARY CARE PHYSICIAN: To use this Smartlink, specify the provider ID whose address you want to display, e.g., .PROVADDR[1 (where 1 is the provider ID). REFERRING PHYSICIAN: Terrence Maier [address] [facility] [address] CHIEF COMPLAINT: No chief complaint on file. HISTORY OF PRESENT ILLNESS: Mr. Main is a 41 year old male who presents today for a cardiovascular medicine follow-up visit. Patient was last seen virtually on 27 October 2020. At that time he was being followed for palpitations. He was started on 12.5 mg p.o. twice daily of Metroprolol tartrate however he continued to feel the symptoms. Therefore it was increased to 25 mg daily again. Since then patient reported that he was doing much better. Metoprolol did improve his symptoms by 50% however he still gets the palpitations. At this time he denies any presyncope and/or syncope with palpitations. Furthermore he denies any chest pain/discomfort, shortness of breath, orthopnea, paroxysmal nocturnal dyspnea as well as any pedal edema. Overall patient is asymptomatic besides the chest pain. PAST MEDICAL HISTORY Diagnosis Date NONE PAST SURGICAL HISTORY Procedure Laterality Date NONE SOCIAL HISTORY Social History Tobacco Use Smoking status: Never Smoker Smokeless tobacco: Former User Types: Chew Vaping Use Vaping Use: Never used Substance Use Topics Alcohol use: No Drug use: No FAMILY HISTORY Problem Relation Age of Onset Lipids Mother Lipids Father ALLERGIES: ALLERGIES No Known Allergies MEDICATIONS: atorvastatin (LIPITOR) 40 mg tablet Take 1 tablet by mouth daily at bedtime. metoprolol succinate ER (TOPROL XL) 25 mg 24 hr tablet Take 1 tablet by mouth twice daily. REVIEW OF SYSTEMS: GENERAL: Negative for: Weight loss or gain, Fever or Chills, Weakness and Sleep difficulties. HEENT: Negative for: Headache, Impaired Vision, Glasses, Hearing Impairment, Ringing in Ears, Nosebleeds, Poor dental care, Bleeding Gums, Dentures NECK: Negative for: Swelling, Pain, Stiffness RESPIRATORY: Negative for: Cough, Blood in Sputum, Shortness of breath, Wheezing, Apnea GASTROINTESTINAL: Negative for: Trouble swallowing, Heartburn, Change in bowel habits, Blood in stool, Dark black stools MUSCULOSKELETAL: Negative for: Muscle or joint pain, Stiffness , Joint swelling NEUROLOGIC/PSYCHIATRIC: Negative for: Weakness, Paralysis, Numbness, Tingling, Tremor, Nervousness, Depressed mood, Memory loss SKIN: Negative for: Rashes, Itching HEMATOLOGICAL/LYMPHATIC: Negative for: Easy bruising , Easy bleeding ENDOCRINE: Negative for: Heat or cold intolerance, Excessive sweating, Frequent urination, Frequent thirst PHYSICAL EXAMINATION: BP 124/74 (BP Site: Right Arm) Pulse (!) 57 Resp 12 Wt 94.3 kg (208 lb) SpO2 98% BMI 29.01 kg/m General: Well appearing, in no acute distress. Skin: No clubbing, no cyanosis. Eyes: Extra ocular movements intact Oropharynx: Teeth in good repair. Neck: No jugular venous distention, no carotid bruits, carotids have a normal upstroke, no palpable thyromegaly. Lungs: Clear to auscultation bilaterally, no wheezing or rhonchi. Heart: Regular rhythm, PMI not displaced, S1, S2 normal, no S3, no S4, no heaves, no rub and no murmur. Abdomen: Soft, nontender, bowel sounds normal, no palpable organomegaly, no bruits. Extremities: No peripheral edema . Grade 2/4 distal pulses bilaterally. Neuro: Oriented to person, place and time, alert, cooperative, gait coordinated. CARDIOVASCULAR MEDICINE TESTING: IMPRESSION: Mr. Main is a 41 year old male who is presenting to our clinic with palpitations. At this time patient reports that it appears that his palpitation is worse in a.m. as well as in the afternoon. Please note these palpitations might appear when the concentration of the medication is trending downwards. Therefore we will switch his tartrate to succinate in order to provide a prolonged mitigation for his palpitations. Furthermore, we will make it a twice daily dosing. At this time patient is understanding and agreeable to the plan. We shall see him in our virtual clinic in 1 month's time Thank you very much for allowing us to participate in care of this pleasant gentleman PLAN AND RECOMMENDATIONS: Palpitations I personally interviewed, confirmed and edited the above information if obtained by others. CONTACT INFORMATION: Terrence Maier M.D, PhD, FRCPC, FACC Plastic Tile Setter at [facility] Associate Pin Game Machine Inspector Internal Medicine Residency Pin Game Machine Inspectorrace and sports book writer Education Internal Medicine Residency Pin Game Machine Inspector of Consult Service [facility] of [facility]ovascular Medicine [facility] Desk [id number] [address] Office Office Appointments: [phone] This medical note has been dictated using voice recognition system. Grammatical and/or syntax errors may be present and therefore the note should be interpreted accordingly. Should you have any questions and/or concerns, please do not hesitate to contact my office. documented in this encounter [facility] 08-07-2021 Miscellaneous Notes August 07, 2021 [id number] Patient Name: Roberto Main Contact Information: [phone] (home) [phone] (work) [phone] (cell) Reason For Call: Refill - Mail Order Pharmacy: Name of Pharmacy [facility] Physician:Terrence Maier MD Pending Prescriptions Disp Refills ATORVASTATIN 40 MG TABLET 90 tablet 3 Sig: Take 1 tablet by mouth daily at bedtime. TRACIE: No The patients last appointment was on 10/27/20. Kelsey Hodge documented in this encounter [facility] Evaluation note Diagnosis Hyperlipidemia, unspecified hyperlipidemia type [facility]- Primary [facility] Diagnosis Pal[facility]ations- Primary [facility] Diagnosis Hyperlipidemia, unspecified hyperlipidemia type [facility] Diagnosis Onset Date Resolution Status Hyperlipidemia chronic Intermittent palpitations ch ronic Multiple premature ventricular complexes chronic Encounter for monitoring flecainide therapy noneactive [facility] Work Phone: Evaluation note* Diagnosis Presbyopia- Primary Hx of LASIK Other states following surgery of eye and adnexa documented in this encounter [facility] Summary Purpose Family History No Family History Records FoundNo Family History Records FoundNo Family History Records FoundNo Family History Records Found Advance Directives No Advanced Directives Records FoundDocuments on File Type Date Recorded 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 Advance Directive(s) 11/06/2020 4:36 PM Advance Directive(s) 05/01/2020 8:34 PM Advance Directive(s) 10/11/2018 6:44 PM Advance Directive(s) 03/15/2017 2:39 PM Chief Complaint and Reason for Visit Chief Complaint 6 M FU EORDERS Reason for Visit Hyperlipidemia Intermittent palpitations Multiple premature ventricular complexes Encounter for monitoring flecainide therapy Additional Source Comments <item> Privacy Markings (unrecogniz ed section and content) Section Author: Fabby Tompkins PROHIBITION ON REDISCLOSURE OF CONFIDENTIAL INFORMATION This notice accompanies a disclosure of information concerning a client made to you with the consent of such client. (unrecognized sect ion and content) No Status Records FoundNo Status Records FoundNo Status Records FoundNo Status Records Found INFORMATION SOURCE (unrecogn ized section and content) DATE CREATED AUTHOR 01/04/2021 [facility] DATE CREATED AUTHOR AUTHOR'S ORGANIZ ATION 01/11/2022 [facility] DATE CREATED AUTHOR AUTHOR'S ORGANIZ ATION 05/01/2024 [facility] DATE CREATED AUTHOR AUTHOR'S ORGANIZ ATION 03/20/2025 [facility] Source Comments (unrecognize d section and content) In the event this informatio n is protected by the Federal Confidentiality of Alcohol and Drug Abuse Patient Records regulations: The Federal rules restrict any use of the information to criminally investigate or prosecute any alcohol or drug abuse [facility] the event this information is protected by the Federal Confidentiality of Alcohol and Drug Abuse Patient Records regulations: The Federal rules restrict any use of the information to criminally investigate or prosecute any alcohol or drug abuse [facility] DaytonIn the event this information is protected by the Federal Confidentiality of Alcohol and Drug Abuse Patient Records regulations: The Federal rules restrict any use of the information to criminally investigate or prosecute any alcohol or drug abuse patient.[facility] DaytonIn the event this information is protected by the Federal Confidentiality of Alcohol and Drug Abuse Patient Records regulations: The Federal rules restrict any use of the information to criminally investigate or prosecute any alcohol or drug abuse patient.[facility] DaytonIn the event this information is protected by the Federal Confidentiality of Alcohol and Drug Abuse Patient Records regulations: The Federal rules restrict any use of the information to criminally investigate or prosecute any alcohol or drug abuse patient.[facility] DaytonIn the event this information is protected by the Federal Confidentiality of Alcohol and Drug Abuse Patient Records regulations: The Federal rules restrict any use of the information to criminally investigate or prosecute any alcohol or drug abuse patient.[facility] Reason for Visit (unrecogniz ed section and content) Reason Comments Refill Request Reason Comments Follow Up Reason Comments Event Zio patch Reason Comments Refill Request Atorvastatin Reason Comments Comprehensive Health Assessment Blurred Vision Both Eyes Care Teams (unrecognized sec tion and content) Card Tender Relationship Specialty Start Date End Date Terrence Maier MD [address] [place] [address] Primary Staff Physician Cardiology 09/24/21 Card Tender Relationship Specialty Start Date End Date Terrence Maier MD [address] [place] [address] Primary Staff Physician Cardiology 09/24/21 Card Tender Relationship Specialty Start Date End Date Terrence Maier MD [address] [place] [address] Primary Staff Physician Cardiology 09/24/21 Card Tender Relationship Specialty Start Date End Date Terrence Maier MD [address] [place] [address] Primary Staff Physician Cardiology 09/24/21 Team Status: Active Member Role Status Dates No Primary Care Physician Primary Care Provider Active Team Status: Inactive Member Role Status Dates No Primary Care Physician Primary Care Provider, Refer ring Provider Active CHARLINE Lopez Attending Provider Active Team Status: Inactive Member Role Status Dates No Primary Care Physician Primary Care Provider Active CHARLINE Lopez Attending Provider, Referr ing Provider Active Card Tender Relationship Specialty Start Date End Date Terrence Maier MD [address] [place] [address] Primary Staff Physician Cardiology 09/24/21 Goals (unrecognized section and content) Goals may be documented in a n alternate section FOR RECORDS PERTAINING TO PATIENTS WHO ARE OR HAVE BEEN ENROLLED IN A CHEMICAL DEPENDENCY/SUBSTANCEABUSE PROGRAM, SOME INFORMATION MAY BE OMITTED. This clinical summary was aggregated from multiple sources. Caution should be exercised in using it in the provision of clinical care. This summary normalizes information from multiple sources, and as a consequence, information in this document may materially change the coding, format and clinical context of patient data. In addition, data may be omitted in some cases. CLINICAL DECISIONS SHOULD BE BASED ON THE PRIMARY CLINICAL RECORDS. [employer] provides no warranty or guarantee of the accuracy or completeness of information in this document.
== END | disposition home or self-care (01) ==
LOC: CVS 07:41
PROVIDERS: Referring Provider Physician Assistant Medical; Visit Provider Physician Assistant Medical
DX: I49.3 Ventricular premature depolarization (principal); R94.31 Abnormal electrocardiogram [ECG] [EKG]
CPT/HCPCS: 93306